=== PATIENT | male | born 1985 | race Asian ===

== ENCOUNTER 2022-01-01 06:40 | Emergency (ER) | payer OTHER ==
[~2022-01-01] VITALS: Ht 167.6 cm; Wt 88.9 kg
[2022-01-01 06:55] VITALS: BP 157/100
--- NOTE | 2022-01-01 06:57 | NUR ---
patient to lobby
--- NOTE | 2022-01-01 07:19 | NUR ---
swabs- covid, holden, and strep sent to lab. received by [employer] tech
[2022-01-01] MEDS ORDERED: ACETAMINOPHEN 650 MG/20.3 ML UDC PO ONE (07:20)
--- NOTE | 2022-01-01 07:41 | NUR ---
36 Y/O MALE, BIB PATIENT PRESENTS TO ED WITH SORE THROAT FOR 1 WEEK, PT IS ALSO HAVING THE SAME S/S. DENIES N/V/D; SKIN IS PINK/WARM/DRY; AAOX4 WITH EVEN AND STEADY GAIT; LUNGS CLEAR BL; HR EVEN AND REGULAR; PT DENIES ANY FEVER, CP, SOB, OR COUGH AT THIS TIME; PATIENT STATES PAIN OF 3/10 AT THIS TIME; VSS; PATIENT POSITIONED FOR COMFORT; HOB ELEVATED; BEDRAILS UP X2; BED DOWN. ER MD MADE AWARE OF PT STATUS. PMH: DENIES NKA
--- NOTE | 2022-01-01 08:48 | NUR ---
Patient discharged with v/s stable. Written and verbal after care instructions ABOUT VIRAL ILLNESS AND PHARYNGITIS given and explained. Patient verbalized understanding. Ambulatory with steady gait. All questions addressed prior to discharge. Advised to follow up with PMD.
== END 2022-01-01 08:48 | disposition home or self-care (01) ==
LOC: MED 06:40
DX: J02.8 Acute pharyngitis due to other specified organisms (principal); B97.89 Other viral agents as the cause of diseases classified elsewhere; Z20.822 Contact with and (suspected) exposure to COVID-19; I10 Essential (primary) hypertension; R59.0 Localized enlarged lymph nodes
CPT/HCPCS: 87081; 99283

== ENCOUNTER 2023-01-08 20:00 | Emergency (ER) | payer OTHER ==
[~2023-01-08] VITALS: Ht 167.6 cm; Wt 81.6 kg
[2023-01-08 20:13] VITALS: BP 145/97
[2023-01-08] MEDS ORDERED: FLUORESCEIN OPTH STRIP 1 MG OP ONE (20:30)
--- NOTE | 2023-01-08 20:33 | NUR ---
Patient being evaluated by DR. MARES at bedside.
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
[2023-01-08] MEDS ORDERED: TETRACAINE HCL/PF 0.5% OPTH 4 ML BTL OP ONE (20:50)
[2023-01-08] MEDS ORDERED: ACET-8905 PO (21:00)
[2023-01-08] MEDS ORDERED: IBUP-2213 PO (21:00)
[2023-01-08] MEDS ORDERED: ERYT5OIN51 OP (21:00)
--- NOTE | 2023-01-08 21:18 | NUR ---
Patient discharged with v/s stable. Written and verbal after care instructions given and explained. Patient alert, oriented and verbalized understanding of instructions. All questions addressed prior to discharge. ID band removed. Patient advised to follow up with PMD. Rx sent to preferred pharmacy. Patient educated on indication of medication including possible reaction and side effects. Opportunity to ask questions provided and answered.
[2023-01-08 21:23] VITALS: BP 135/86
== END 2023-01-08 21:18 | disposition home or self-care (01) ==
LOC: MED 20:00
DX: S05.01XA Injury of conjunctiva and corneal abrasion without foreign body, right eye, initial encounter (principal); I10 Essential (primary) hypertension; W50.0XXA Accidental hit or strike by another person, initial encounter; Y93.89 Activity, other specified; Y92.89 Other specified places as the place of occurrence of the external cause; Y99.8 Other external cause status
CPT/HCPCS: 99283